=== PATIENT | female | born 1940 | race Caucasian/White ===

== ENCOUNTER 2017-08-30 08:00 | Outpatient (CLI) | payer MEDICARE, OTHER ==
[2017-08-30 19:27] LABS: BASOPHILS % (AUTO) 0.2 %; EOSINOPHILS # (AUTO) 0.1 10^3/uL (0.0-0.7); EOSINOPHILS % (AUTO) 2.2 %; HCT - HEMATOCRIT 43.8 % (37.0-47.0); HGB - HEMOGLOBIN 14.3 g/dL (12.0-16.0); MEAN CORPUSCULAR HEMOGLOBIN 29.2 pg (27.0-31.0); MEAN CORPUSCULAR HGB CONC 32.6 g/dL (32.0-36.0); MEAN CORPUSCULAR VOLUME 89.7 fL (81.0-99.0); MEAN PLATELET VOLUME 8.8 fL (7.9-10.8); MONOCYTES # (AUTO) 0.4 10^3/uL (0.0-1.0); MONOCYTES % (AUTO) 6.7 %; NEUTROPHILS # (AUTO) 3.5 10^3/uL (1.5-6.6); NEUTROPHILS % (AUTO) 57.9 %; NUCLEATED RED BLOOD CELLS AUTO 0.1 /100WBC; RED BLOOD COUNT 4.89 10^6/uL (4.20-5.40); RED CELL DISTRIBUTION WIDTH 14.2 % (12.0-15.0)
[2017-08-30 19:45] LABS: HEMOGLOBIN A1C 0.54 g/dL
[2017-08-30 19:55] LABS: THYROID STIMULATING HORMONE 3.04 uIU/mL (0.34-5.60)
[2017-08-30 20:31] LABS: ALBUMIN/GLOBULIN RATIO 1.5 (1.0-2.2); BILIRUBIN,TOTAL 0.5 mg/dL (0.2-1.0); BUN - BLOOD UREA NITROGEN 14 mg/dL (6-20); CALCIUM 10.1 mg/dL (8.5-10.3); CARBON DIOXIDE - CO2 26 mmol/L (21-32); CHLORIDE 102 mmol/L (101-111); CREATININE 0.9 mg/dL (0.4-1.0); GFR - MDRD 61 (>89); GLUCOSE 82 mg/dL (70-100); POTASSIUM 3.9 mmol/L (3.5-5.0); SODIUM 138 mmol/L (135-145); TOTAL PROTEIN 7.2 g/dL (6.7-8.2)
[2017-09-01 15:35] LABS: ALPHA 1 GLOBULIN 0.3 g/dL (0.2-0.3); ALPHA 2 GLOBULIN 0.6 g/dL (0.5-0.9); BETA 1 GLOBULIN 0.4 g/dL (0.4-0.6); BETA 2 GLOBULIN 0.3 g/dL (0.2-0.5); GAMMA GLOBULIN 0.8 g/dL (0.8-1.7)
[2017-09-01 22:53] LABS: TEST RESULT REPORT
== END 2017-08-30 08:01 | disposition home or self-care (01) ==
LOC: LAB.WCP 08:00
PROVIDERS: ATTEND Family Medicine
DX: G62.9 Polyneuropathy, unspecified (principal); R73.01 Impaired fasting glucose; E78.5 Hyperlipidemia, unspecified
CPT/HCPCS: 36415; 80053; 81599; 82607; 83036; 84155; 84165; 84443; 85025; 86140

== ENCOUNTER 2019-01-19 09:18 | Outpatient (CLI) | payer MEDICARE, OTHER ==
[2019-01-19 09:30] LABS: BASOPHILS % (AUTO) 0.7 %; EOSINOPHILS # (AUTO) 0.2 10^3/uL (0.0-0.7); EOSINOPHILS % (AUTO) 3.1 %; HGB - HEMOGLOBIN 14.4 g/dL (12.0-16.0); LYMPHOCYTES # (AUTO) 1.8 10^3/uL (1.5-3.5); LYMPHOCYTES % (AUTO) 29.3 %; MEAN CORPUSCULAR HEMOGLOBIN 29.5 pg (27.0-31.0); MEAN CORPUSCULAR HGB CONC 33.3 g/dL (32.0-36.0); MEAN CORPUSCULAR VOLUME 88.7 fL (81.0-99.0); MEAN PLATELET VOLUME 7.5 fL (7.9-10.8); MONOCYTES # (AUTO) 0.4 10^3/uL (0.0-1.0); MONOCYTES % (AUTO) 6.9 %; NEUTROPHILS # (AUTO) 3.8 10^3/uL (1.5-6.6); PLT - PLATELET COUNT 208 10^3/uL (130-450); RED BLOOD COUNT 4.89 10^6/uL (4.20-5.40); RED CELL DISTRIBUTION WIDTH 14.3 % (12.0-15.0); WHITE BLOOD COUNT 6.3 x10^3/uL (4.8-10.8)
[2019-01-19 09:47] LABS: ALBUMIN/GLOBULIN RATIO 1.5 (1.0-2.2); ALKALINE PHOSPHATASE 42 IU/L (42-121); ALT ALANINE AMINOTRANSFERASE 18 IU/L (10-60); AST ASPARTATE AMINOTRANSFERASE 21 IU/L (10-42); BILIRUBIN,TOTAL 0.7 mg/dL (0.2-1.0); BUN - BLOOD UREA NITROGEN 12 mg/dL (6-20); CALCIUM 9.1 mg/dL (8.5-10.3); CARBON DIOXIDE - CO2 24 mmol/L (21-32); CHLORIDE 103 mmol/L (101-111); CHOL/HDL RATIO 4.4 (<4.4); CHOLESTEROL 236 mg/dL; CREATININE 0.9 mg/dL (0.4-1.0); GFR - MDRD 61 (>89); GLUCOSE 102 mg/dL (70-100); HDL CHOLESTEROL 54 mg/dL; LDL CHOLESTEROL,CALCULATED 159 mg/dL; LDL/HDL RATIO 2.9 (<4.4); SODIUM 137 mmol/L (135-145); TOTAL PROTEIN 6.7 g/dL (6.7-8.2); VLDL CHOLESTEROL 23 mg/dL
== END 2019-01-19 09:19 | disposition home or self-care (01) ==
LOC: LAB 09:18
PROVIDERS: ATTEND Family Medicine
DX: E78.5 Hyperlipidemia, unspecified (principal); Z85.3 Personal history of malignant neoplasm of breast
CPT/HCPCS: 36415; 80053; 80061; 83721; 85025

== ENCOUNTER 2019-03-06 08:46 | Outpatient (CLI) | payer MEDICARE, OTHER ==
--- NOTE | 2019-03-07 09:15 | Mammography Report ---
Reason: SCREENING MAMMO Procedure Date: 03/06/2019 Accession Number: [id number] / [id number] Procedure: EDILSON - Screening Mammo w/Luca CPT Code: FULL RESULT: EXAM: Screening Mammo w/Luca DATE: 03/06/2019 9:11 AM CLINICAL HISTORY: Screening encounter. Personal history of breast cancer. Status post lumpectomy of the left breast in 1989. TECHNIQUE: (B) - Bilateral CC and MLO views were obtained. COMPARISON: 01/13/2015 through 07/19/2010. PARENCHYMAL PATTERN: (A) - The breast(s) demonstrate(s) scattered fibroglandular densities. FINDINGS: The bilateral CC views are technically inadequate. There are no suspicious masses, calcifications, or areas of distortion detected on the submitted images. IMPRESSION: Incomplete examination. BI-RADS category 0. RECOMMENDATION: (REPEAT) - technical repeat of left and right cc views. BI-RADS CATEGORY: (0) - Incomplete Examination - need additional evaluation. STANDARD QUALIFYING STATEMENTS: 1. This examination was not reviewed with the aid of Computer-Aided Detection (CAD). 2. A negative or benign imaging report should not preclude biopsy if clinically suspicious findings are present. 3. Dense breasts may obscure an underlying neoplasm. 4. This examination was reviewed with the aid of 3D breast imaging (tomosynthesis).
== END 2019-03-06 08:47 | disposition home or self-care (01) ==
LOC: DI 08:46
DX: Z12.31 Encounter for screening mammogram for malignant neoplasm of breast (principal); Z08 Encounter for follow-up examination after completed treatment for malignant neoplasm; Z85.3 Personal history of malignant neoplasm of breast
CPT/HCPCS: 77063; 77067

== ENCOUNTER 2020-03-24 10:47 | Outpatient (CLI) | payer MEDICARE, OTHER | END 2020-03-24 10:48 | disposition home or self-care (01) | LOC: LAB 10:47 | PROVIDERS: ATTEND Ophthalmology | DX: H25.811 Combined forms of age-related cataract, right eye (principal); Z11.59 Encounter for screening for other viral diseases | CPT/HCPCS: 81599 ==

== ENCOUNTER 2020-03-26 06:42 | Day surgery (SDC) | payer MEDICARE, OTHER ==
[~2020-03-26 06:42] MED LIST: CYCLOPENTOLATE 1% OPHTH DROPS 2 ML ONE; KETOROLAC 0.45% OPHTH DROPS ONE; PHENYLEPHRINE 2.5% OPHTH 2 ML DROPS ONE; PROPARACAINE 0.5% OPHTH DROPS 15 ML ONE
[2020-03-26] MEDS ORDERED: LACTATED RINGERS 500 ML IV ONE (06:47)
[2020-03-26] MEDS ORDERED: BRIMONIDINE 0.2% OPHTH DROPS 5 ML ONE (06:49)
[2020-03-26] MEDS ORDERED: timoloL maleate 0.5% OPHTH DROPS (10ML) ONE (06:49)
[2020-03-26] MEDS ORDERED: TRIAMCIN/MOXIFLOX OPHTHALMIC 0.6 ML VIAL IO ONE (06:49)
[2020-03-26] MEDS ORDERED: VANCOMYCIN OPHTHALMI 8MG/0.8ML 8 MG/0.8 ML SYRINGE IO ONE ×2 (06:49→07:55)
[2020-03-26] MEDS ORDERED: BSS/LIDOCAINE/EPINEPHRINE 1 ML SYRINGE ONE (06:49)
[2020-03-26] MEDS ORDERED: EPINEPHrine 1 MG/ML AMP ONE (06:57)
[2020-03-26] MEDS ORDERED: EPINEPHrine 1 MG/ML AMP IR ONE (07:54)
[2020-03-26] MEDS ORDERED: BSS/LIDOCAINE/EPINEPHRINE 1 ML SYRINGE IO ONE (07:54)
[2020-03-26] MEDS ORDERED: BRIMONIDINE 0.2% OPHTH DROPS 5 ML OPTH ONE (07:54)
[2020-03-26] MEDS ORDERED: PROPARACAINE 0.5% OPHTH DROPS 15 ML EACHEYE ONE (07:54)
[2020-03-26] MEDS ORDERED: CHONDR SULF/HYALURONATE SYRINGE IO ONE (07:54)
--- NOTE | 2020-03-26 08:00 | ANESTHESIA ---
Pre-Anesthesia VS, & Labs - Diagnosis Right Cataract - Procedure Right eye ECCE with PHACO and IOL Vital Signs: Temp Pulse Resp BP Pulse Ox 36.2 C L 73 16 165/88 H 97 03/26/20 06:48 03/26/20 06:48 03/26/20 06:48 03/26/20 06:48 03/26/20 06:48 Height 5 ft 2 in Weight (kg) 71.2 kg - NPO >8 hours - Is Patient ?: No - Lab Results Lab results reviewed: Yes Home Medications and Allergies Aspirin [Aspir 81] 81 mg PO ONCEDAILY 10/16/13 Allergies/Adverse Reactions: Allergies Allergy/AdvReac Type Severity Reaction Status Date / Time No Known Drug Allergies Allergy Verified 10/15/13 13:09 Anes History & Medical History - Anesthetic History Anesthesia Complications: reports: No previous complications Family history of Anesthesia Complications: Denies Family history of Malignant Hyperthermia: Denies - Medical History Cardiovascular: reports: High cholesterol, Other Pulmonary: reports: None Gastrointestinal: reports: GERD, Hiatal hernia, Colon polyps, Hemorrhoids Urinary: reports: Frequency Musculoskeletal: reports: Other Endocrine/Autoimmune: reports: None Skin: reports: None - Surgical History General: Colonoscopy, EGD Gynecologic: Dilation and currettage, Other Exam General: Alert, Oriented x3, Cooperative Dental: WNL Mouth Openin Fingerbreadth (FB) Neck Mobility: Normal Mallampati classification: II Thyromental Distance: 4-6 cm Respiratory: Lungs clear Cardiovascular: Regular rate Plan Anesthesia Type: MAC Consent for Procedure(s) Verified and Reviewed: Yes Code Status: Attempt Resuscitation ASA classification: 3-Severe systemic disease Is this case an emergency?: No
[2020-03-26] MEDS ORDERED: MIDAZOLAM 2 MG/2 ML VIAL IVP ONE (08:09)
[2020-03-26 08:42] VITALS: BP 154/78
--- NOTE | 2020-03-26 09:45 | OPERATIVE REPORT ---
DATE OF SERVICE: 03/26/2020 Physician: Marco Antonio Vasquez MD PREOPERATIVE DIAGNOSIS: Visually significant cataract, right eye. This was her first cataract surge ry. POSTOPERATIVE DIAGNOSIS: Visually significant cataract, right eye. This was her first cataract surg [place]. PROCEDURE: Phacoemulsification with posterior chamber intraocular lens implant, right eye. SURGEON: Marco Antonio Vasquez MD ANESTHESIA: Monitored anesthesia care. COMPLICATIONS: None. OPERATIVE INDICATIONS: This is a 79-year-old woman with progressive vision loss in the right eye due to 2+ nuclear sclerotic, 2-3+ cortical, 2+ posterior subcapsular and vacuolar cataract. [facility] visual acuity was 20/30, with glare to 20/630 in the right eye. She was consented at length conc erning risks and benefits of cataract surgery, after which she expressed a desire to proceed with kofi dewey. OPERATIVE PROCEDURE: Patient was taken to OR #3 and placed under monitored anesthesia care. A surgi lia timeout was conducted confirming correct patient, correct procedure, and correct surgical site. She was given topical anesthesia, and prepped and draped in the usual sterile fashion. The eye was e ntered at the 12 and 9 o'clock positions. Intracameral Shugarcaine was injected into the anterior ch liat, followed by Viscoat. A continuous-tear curvilinear capsulorrhexis was performed. The nucleus was hydrodissected and phacoemulsified. The cortex was evacuated using automated infusion and aspir ation. Provisc was injected in the capsular bag, and a 23.5 diopter intraocular lens inserted in the bag. Infusion and aspiration was used to evacuate the viscoelastic materials. The eye was inflated to physiologic pressure using balanced salt solution and found to be watertight. Approximately 0.25 mL of a mixture of triamcinolone and moxifloxacin was injected trans sclerally into the vitreous in the inferotemporal quadrant. An additional 0.55 mL of a mixture of triamcinolone, moxifloxacin and v ancomycin was injected subconjunctivally in the superior quadrant for infection and inflammation prop hylaxis. Wound integrity was checked with Weck-Lisa sponges. Patient was taken from the Operating Ro om in good condition and given postoperative instructions. TD: 03/26/2020 08:42
== END 2020-03-26 06:43 | disposition home or self-care (01) ==
LOC: SDS 06:42
PROVIDERS: ATTEND Ophthalmology
DX: H25.811 Combined forms of age-related cataract, right eye (principal); Z87.891 Personal history of nicotine dependence
CPT/HCPCS: 66984; A9270; J3490; V2632

== ENCOUNTER 2020-04-30 06:40 | Day surgery (SDC) | payer MEDICARE, OTHER ==
[2020-04-30] MEDS ORDERED: KETOROLAC 0.45% OPHTH DROPS ONE (06:44)
[2020-04-30] MEDS ORDERED: PHENYLEPHRINE 2.5% OPHTH 2 ML DROPS ONE (06:45)
[2020-04-30] MEDS ORDERED: CYCLOPENTOLATE 1% OPHTH DROPS 2 ML ONE (06:45)
[2020-04-30] MEDS ORDERED: PROPARACAINE 0.5% OPHTH DROPS 15 ML ONE (06:45)
[2020-04-30] MEDS ORDERED: LACTATED RINGERS 500 ML IV ONE (06:48)
--- NOTE | 2020-04-30 07:38 | ANESTHESIA ---
Pre-Anesthesia VS, & Labs - Diagnosis left senile combined cataract - Procedure cateract extraction with intraocular lens implant left eye Vital Signs: Temp Pulse Resp BP Pulse Ox 36.1 C L 86 12 169/97 H 97 04/30/20 06:49 04/30/20 06:49 04/30/20 06:49 04/30/20 06:49 04/30/20 06:49 Height 5 ft 3 in Weight (kg) 70.6 kg - NPO >8 hours - Is Patient ?: No Home Medications and Allergies Aspirin [Aspir 81] 81 mg PO ONCEDAILY 10/16/13 Allergies/Adverse Reactions: Allergies Allergy/AdvReac Type Severity Reaction Status Date / Time No Known Drug Allergies Allergy Verified 10/15/13 13:09 Anes History & Medical History - Anesthetic History Anesthesia Complications: reports: No previous complications - Medical History Cardiovascular: reports: High cholesterol, Other Pulmonary: reports: None Gastrointestinal: reports: GERD, Hiatal hernia, Colon polyps, Hemorrhoids Urinary: reports: Frequency Musculoskeletal: reports: Other Endocrine/Autoimmune: reports: None Skin: reports: None - Surgical History General: Colonoscopy, EGD Gynecologic: Dilation and currettage, Other Exam General: Alert Dental: WNL Mouth Opening: Greater than 4 Fingerbreadths Neck Mobility: Normal Mallampati classification: II Thyromental Distance: greater than 6 cm Respiratory: Lungs clear Cardiovascular: Regular rate, Normal S1, Normal S2 Plan Anesthesia Type: MAC Consent for Procedure(s) Verified and Reviewed: Yes Code Status: Attempt Resuscitation ASA classification: 2-Mild systemic disease Is this case an emergency?: No
[2020-04-30] MEDS ORDERED: TRIAMCIN/MOXIFLOX OPHTHALMIC 0.6 ML VIAL IO ONE ×2 (07:48→08:04)
[2020-04-30] MEDS ORDERED: BRIMONIDINE 0.2% OPHTH DROPS 5 ML ONE (07:48)
[2020-04-30] MEDS ORDERED: EPINEPHrine 1 MG/ML AMP ONE (07:48)
[2020-04-30] MEDS ORDERED: TIMOLOL 0.5% OPHTH DROPS ONE (07:48)
[2020-04-30] MEDS ORDERED: BSS/LIDOCAINE/EPINEPHRINE 1 ML SYRINGE ONE (07:49)
[2020-04-30] MEDS ORDERED: VANCOMYCIN OPHTHALMI 8MG/0.8ML 8 MG/0.8 ML SYRINGE IO ONE ×2 (07:49→08:05)
[2020-04-30] MEDS ORDERED: MIDAZOLAM 2 MG/2 ML VIAL IVP ONE (08:00)
[2020-04-30] MEDS ORDERED: BRIMONIDINE 0.2% OPHTH DROPS 5 ML OPTH ONE (08:02)
[2020-04-30] MEDS ORDERED: TIMOLOL 0.5% OPHTH DROPS OPTH ONE (08:02)
[2020-04-30] MEDS ORDERED: EPINEPHrine 1 MG/ML AMP IR ONE (08:02)
[2020-04-30] MEDS ORDERED: CHONDR SULF/HYALURONATE SYRINGE IO ONE (08:02)
[2020-04-30] MEDS ORDERED: PROPARACAINE 0.5% OPHTH DROPS 15 ML EACHEYE ONE (08:04)
[2020-04-30] MEDS ORDERED: BSS/LIDOCAINE/EPINEPHRINE 1 ML SYRINGE IO ONE (08:04)
[2020-04-30] MEDS ORDERED: KETOROLAC 15 MG/ML VIAL ONE (08:28)
[2020-04-30 08:40] VITALS: BP 135/75
--- NOTE | 2020-04-30 09:12 | OPERATIVE REPORT ---
DATE OF SERVICE: 04/30/2020 Physician: Marco Antonio Vasquez MD PREOPERATIVE DIAGNOSIS: Visually significant cataract, left eye. Cataract surgery was performed on her right eye on 03/26/2020. POSTOPERATIVE DIAGNOSIS: Visually significant cataract, left eye. Cataract surgery was performed on her right eye on 03/26/2020. PROCEDURE: Phacoemulsification with posterior chamber intraocular lens implant, left eye. SURGEON: Marco Antonio Vasquez MD ANESTHESIA: Monitored anesthesia care. COMPLICATIONS: None. OPERATIVE INDICATIONS: This is a 79-year-old woman with progressive vision loss in the left eye due to 2+ nuclear sclerotic, 2-3+ cortical, 2+ posterior subcapsular and vacuolar cataract. Best correct ed visual acuity was 20/20, with glare to 20/800 in the left eye. Indications for surgery were diffi culty driving in low light or at night, difficulty driving at night because of headlights from other vehicles, and difficulty with glare or bright lights in any situation. She was consented at length c oncerning risks and benefits of cataract surgery, after which she expressed a desire to proceed with surgery. OPERATIVE PROCEDURE: Patient was taken to OR #3 and placed under monitored anesthesia care. Surgica l timeout was conducted confirming correct patient, correct procedure, and correct surgical site. Sh e was given topical anesthesia, and prepped and draped in the usual sterile fashion. The eye was ent ered at the 6 and 3 o'clock positions. Intracameral Shugarcaine was injected into the anterior chamb er, followed by Viscoat. A continuous-tear curvilinear capsulorrhexis was performed. The nucleus wa s hydrodissected and phacoemulsified. Cortex was evacuated using automated infusion and aspiration. Provisc was injected in the capsular bag, and a 23.0 diopter intraocular lens was inserted into the bag. Infusion and aspiration was used to evacuate the viscoelastic materials. The eye was inflated to physiologic pressure using balanced salt solution and found to be watertight. Approximately 0.25 mL of a mixture of triamcinolone and moxifloxacin was injected trans sclerally into the vitreous in t he inferotemporal quadrant. An additional 0.55 mL of a mixture of triamcinolone, moxifloxacin and va ncomycin was injected subconjunctivally in the superior quadrant for infection and inflammation proph ylaxis. Wound integrity was checked with Weck-Lisa sponges. Patient was taken from the Operating [facility] in good condition and given postoperative instructions. TD: 04/30/2020 09:06
--- NOTE | 2020-04-30 09:13 | ANESTHESIA POST OP EVALUATION ---
Anesthesia Post Eval - Post Anesthesia Eval Vitals: Last Vital Signs Temp 36.1 C L 04/30/20 08:38 Pulse 70 04/30/20 08:38 Resp 16 04/30/20 08:38 BP 135/75 H 04/30/20 08:38 Pulse Ox 96 04/30/20 08:38 CV Function Including HR & BP: positive: Stable Pain Control: positive: Satisfactory Nausea & Vomiting: positive: Negative Mental Status: positive: Patient Participates Respiratory Status: Airway Patent Hydration Status: Satisfactory Anesthesia Complications: positive: None
== END 2020-04-30 06:41 | disposition home or self-care (01) ==
LOC: SDS 06:40
PROVIDERS: ATTEND Ophthalmology
DX: H25.812 Combined forms of age-related cataract, left eye (principal); Z98.41 Cataract extraction status, right eye; Z87.891 Personal history of nicotine dependence
CPT/HCPCS: 66984; A9270; J3490; J7120; V2632

== ENCOUNTER 2020-05-14 08:34 | Outpatient (CLI) | payer MEDICARE, OTHER ==
[2020-05-14 08:50] LABS: BASOPHILS % (AUTO) 0.3 %; EOSINOPHILS # (AUTO) 0.2 10^3/uL (0.0-0.7); EOSINOPHILS % (AUTO) 2.9 %; HGB - HEMOGLOBIN 14.9 g/dL (12.0-16.0); LYMPHOCYTES # (AUTO) 2.4 10^3/uL (1.5-3.5); LYMPHOCYTES % (AUTO) 34.4 %; MEAN CORPUSCULAR HEMOGLOBIN 29.5 pg (27.0-31.0); MEAN CORPUSCULAR HGB CONC 32.6 g/dL (32.0-36.0); MEAN CORPUSCULAR VOLUME 90.5 fL (81.0-99.0); MEAN PLATELET VOLUME 9.3 fL (7.9-10.8); MONOCYTES # (AUTO) 0.5 10^3/uL (0.0-1.0); MONOCYTES % (AUTO) 6.8 %; NEUTROPHILS # (AUTO) 3.9 10^3/uL (1.5-6.6); NEUTROPHILS % (AUTO) 55.2 %; PLT - PLATELET COUNT 220 10^3/uL (130-450); RED BLOOD COUNT 5.05 10^6/uL (4.20-5.40); RED CELL DISTRIBUTION WIDTH 13.2 % (12.0-15.0)
[2020-05-14 09:07] LABS: ALBUMIN 4.3 g/dL (3.2-5.5); ALBUMIN/GLOBULIN RATIO 1.4 (1.0-2.2); ALKALINE PHOSPHATASE 48 IU/L (42-121); ALT ALANINE AMINOTRANSFERASE 16 IU/L (10-60); AST ASPARTATE AMINOTRANSFERASE 17 IU/L (10-42); BILIRUBIN,TOTAL 0.8 mg/dL (0.2-1.0); BUN - BLOOD UREA NITROGEN 14 mg/dL (6-20); CALCIUM 9.6 mg/dL (8.5-10.3); CARBON DIOXIDE - CO2 27 mmol/L (21-32); CHLORIDE 103 mmol/L (101-111); CHOL/HDL RATIO 4.8 (<4.4); CHOLESTEROL 281 mg/dL; CREATININE 0.9 mg/dL (0.4-1.0); GLUCOSE 103 mg/dL (70-100); HDL CHOLESTEROL 58 mg/dL; LDL CHOLESTEROL,CALCULATED 193 mg/dL; LDL/HDL RATIO 3.3 (<4.4); SODIUM 138 mmol/L (135-145); TOTAL PROTEIN 7.4 g/dL (6.7-8.2); VLDL CHOLESTEROL 30 mg/dL
[2020-05-14 14:17] LABS: HEMOGLOBIN A1c% 5.6 % (4.27-6.07)
== END 2020-05-14 08:35 | disposition home or self-care (01) ==
LOC: LAB 08:34
PROVIDERS: ATTEND Family Medicine
DX: R73.01 Impaired fasting glucose (principal); E78.5 Hyperlipidemia, unspecified; M85.80 Other specified disorders of bone density and structure, unspecified site
CPT/HCPCS: 36415; 80053; 80061; 83036; 83721; 85025

== ENCOUNTER 2020-05-18 15:08 | Outpatient (CLI) | payer MEDICARE, OTHER ==
--- NOTE | 2020-05-18 17:13 | DEXA Report ---
PROCEDURE: Dexa Spine and/or Hip INDICATIONS: DISORDER OF BONE, UNSPECIFIED TECHNIQUE: Dual energy x-ray absorptiometry (DXA) was performed on a [employer]ik[employer] System. Regions measur ed are the AP Spine, femoral neck, and if needed forearm. COMPARISON: None. FINDINGS: Lumbar Spine: Bone Mineral Density 1.013 g/cm/cm,T score -1.3, minimal osteopenia Left Hip: Bone Mineral Density -0.69 g/cm/cm,T score -0.3, normal Left Femoral Neck: Bone Mineral Density 0.894 g/cm/cm, T score -1.0, normal (T score greater or equal to -1.0: NORMAL) (T score from -1.1 to -2.4: OSTEOPENIA) (T score less than or equal to -2.5 to: OSTEOPOROSIS) Impression: Minimal osteopenia within the lumbar spine. Patients with diagnosis of osteoporosis or osteopenia should have regular bone mineral density assess ment. For those eligible for Medicare, routine testing is allowed once every 2 years. Testing frequ ency can be increased for patients who have rapidly progressing disease or for those who are receivin g medical therapy to restore bone mass. Reviewed by: Carey Lou MD on 05/18/2020 5:12 PM PDT Approved by: Carey Lou MD on 05/18/2020 5:12 PM PDT Station ID: [id number]
== END 2020-05-18 15:09 | disposition home or self-care (01) ==
LOC: DI 15:08
PROVIDERS: ATTEND Family Medicine
DX: M85.88 Other specified disorders of bone density and structure, other site (principal)
CPT/HCPCS: 77080

== ENCOUNTER 2021-03-04 10:19 | Outpatient (CLI) | payer MEDICARE ==
--- NOTE | 2021-03-05 10:35 | Mammography Report ---
BILATERAL DIGITAL DIAGNOSTIC MAMMOGRAM 3D/2D: 03/04/2021 CLINICAL: Diffuse right breast pain. Comparison is made to exams dated: 04/08/2019 mammogram, 03/06/2019 mammogram, 01/01/2014 mammogram, an d 01/13/2015 mammogram - [facility]. There are scattered fibroglandular elements in both breasts. No significant masses, calcifications, or other findings are seen in either breast. No mass or calcif ications in the right breast. Prior left breast lumpectomy. IMPRESSION: NEGATIVE There is no mammographic evidence of malignancy. A 1 year screening mammogram is recommended. Exam findings were conveyed to the patient. Patient is advised to monitor right breast pain/itchiness for significant change. Clinical follow-up as needed. This exam was interpreted at Station ID: [id number]. NOTE: For mammograms, a report in lay terms will be sent to the patient. Approximately 15% of breast malignancies will not be visualized mammographically. In the management of a palpable breast mass, a negative mammogram must not discourage biopsy of a clinically suspicious lesion. Electronically Signed By: Mateo Ivy M.D. slc/:03/04/2021 12:17:04 ACR BI-RADS Category 1: Negative 3341F PARENCHYMAL PATTERN: (A) - The breast(s) demonstrate(s) scattered fibroglandular densities. BI-RADS CATEGORY: (1) - 1 RECOMMENDATION: (ANNUAL) - Recommend routine annual screening mammography. [id number] 1 year screening LATERALITY: (B)
== END 2021-03-04 10:20 | disposition home or self-care (01) ==
LOC: DI 10:19
PROVIDERS: ATTEND Family Medicine
DX: N64.59 Other signs and symptoms in breast (principal)

== ENCOUNTER 2021-07-21 08:54 | Outpatient (CLI) | payer MEDICARE ==
[2021-07-21 09:35] LABS: BASOPHILS % (AUTO) 0.3 %; EOSINOPHILS # (AUTO) 0.1 10^3/uL (0.0-0.7); EOSINOPHILS % (AUTO) 2.3 %; HGB - HEMOGLOBIN 14.8 g/dL (12.0-16.0); LYMPHOCYTES # (AUTO) 2.1 10^3/uL (1.5-3.5); LYMPHOCYTES % (AUTO) 35.4 %; MEAN CORPUSCULAR HEMOGLOBIN 29.6 pg (27.0-31.0); MEAN CORPUSCULAR HGB CONC 32.9 g/dL (32.0-36.0); MEAN PLATELET VOLUME 9.5 fL (7.9-10.8); MONOCYTES # (AUTO) 0.5 10^3/uL (0.0-1.0); MONOCYTES % (AUTO) 7.9 %; NEUTROPHILS # (AUTO) 3.2 10^3/uL (1.5-6.6); NEUTROPHILS % (AUTO) 53.9 %; PLT - PLATELET COUNT 212 10^3/uL (130-450); RED CELL DISTRIBUTION WIDTH 13.4 % (12.0-15.0)
[2021-07-21 09:50] LABS: ALBUMIN 4.2 g/dL (3.2-5.5); ALBUMIN/GLOBULIN RATIO 1.6 (1.0-2.2); ALKALINE PHOSPHATASE 44 IU/L (42-121); ALT ALANINE AMINOTRANSFERASE 17 IU/L (10-60); AST ASPARTATE AMINOTRANSFERASE 14 IU/L (10-42); BUN - BLOOD UREA NITROGEN 13 mg/dL (6-20); CALCIUM 9.3 mg/dL (8.5-10.3); CARBON DIOXIDE - CO2 27 mmol/L (21-32); CHLORIDE 104 mmol/L (101-111); CHOL/HDL RATIO 4.7 (<4.4); CHOLESTEROL 261 mg/dL; CREATININE 0.8 mg/dL (0.4-1.0); GFR - MDRD 69 (>89); GLUCOSE 101 mg/dL (70-100); HDL CHOLESTEROL 56 mg/dL; LDL CHOLESTEROL,CALCULATED 180 mg/dL; LDL/HDL RATIO 3.2 (<4.4); POTASSIUM 4.1 mmol/L (3.5-5.0); SODIUM 139 mmol/L (135-145); TOTAL PROTEIN 6.9 g/dL (6.7-8.2); TRIGLYCERIDES 124 mg/dL; VLDL CHOLESTEROL 25 mg/dL
[2021-07-21 11:45] LABS: ESTIMATED AVERAGE GLUCOSE 117 mg/dL (70-100); HEMOGLOBIN A1c% 5.7 % (4.27-6.07)
== END 2021-07-21 08:55 | disposition home or self-care (01) ==
LOC: LAB 08:54
PROVIDERS: ATTEND Family Medicine
DX: E78.5 Hyperlipidemia, unspecified (principal); R73.01 Impaired fasting glucose; M89.9 Disorder of bone, unspecified
CPT/HCPCS: 36415; 80053; 80061; 83036; 83721; 85025

== ENCOUNTER 2022-03-29 15:00 | Outpatient (CLI) | payer MEDICARE | END 2022-03-29 15:01 | disposition home or self-care (01) | LOC: DI 15:00 | PROVIDERS: ATTEND Nurse Practitioner Family | DX: R01.1 Cardiac murmur, unspecified (principal); I51.7 Cardiomegaly | CPT/HCPCS: 93306 ==

== ENCOUNTER 2022-10-17 09:57 | Outpatient (CLI) | payer MEDICARE ==
--- NOTE | 2022-10-17 16:47 | Ultrasound Report ---
PROCEDURE: Abdomen Limited INDICATIONS: HEMATOCHEZIA TECHNIQUE: Real-time focused scanning was performed of the abdomen, with image documentation. COMPARISON: None FINDINGS: Liver demonstrates heterogeneous increased echotexture. Cluster of septated cyst within th e left hepatic lobe spanning 13 mm is present. Hepatopedal flow within the portal vein is present. Ga llbladder is within normal limits. No biliary ductal dilatation. Pancreas is not well seen but is wit hin normal limits as visualized. Right kidney is grossly unremarkable without hydronephrosis. Proxima l and mid aorta are not well seen. Distal abdominal aorta is normal in caliber. IVC is patent. No vicki e fluid is seen. IMPRESSION: No acute process. Reviewed by: Calixto Escalona MD on 10/17/2022 4:46 PM PST Approved by: Calixto Escalona MD on 10/17/2022 4:46 PM PST Station ID: [id number]
== END 2022-10-17 09:58 | disposition home or self-care (01) ==
LOC: DI 09:57
PROVIDERS: ATTEND Nurse Practitioner Family
DX: K92.1 Melena (principal); R10.816 Epigastric abdominal tenderness

== ENCOUNTER 2022-10-23 21:31 | Outpatient (CLI) | payer MEDICARE ==
[2022-10-23 14:16] LABS: FECAL OCCULT BLOOD (FIT) NEGATIVE (NEGATIVE)
== END 2022-10-23 23:59 | disposition home or self-care (01) ==
LOC: LAB 21:31
PROVIDERS: ATTEND Nurse Practitioner Family
DX: K92.1 Melena (principal); R10.816 Epigastric abdominal tenderness
CPT/HCPCS: 82274

== ENCOUNTER 2023-03-22 10:00 | Outpatient (CLI) | payer MEDICARE ==
[2023-03-22 10:15] LABS: BASOPHILS % (AUTO) 0.4 %; EOSINOPHILS # (AUTO) 0.1 10^3/uL (0.0-0.7); EOSINOPHILS % (AUTO) 2.2 %; HCT - HEMATOCRIT 45.4 % (37.0-47.0); HGB - HEMOGLOBIN 14.6 g/dL (12.0-16.0); LYMPHOCYTES # (AUTO) 1.7 10^3/uL (1.5-3.5); LYMPHOCYTES % (AUTO) 29.6 %; MEAN CORPUSCULAR HEMOGLOBIN 28.6 pg (27.0-31.0); MEAN CORPUSCULAR HGB CONC 32.2 g/dL (32.0-36.0); MEAN PLATELET VOLUME 9.2 fL (7.9-10.8); MONOCYTES # (AUTO) 0.5 10^3/uL (0.0-1.0); MONOCYTES % (AUTO) 8.8 %; NEUTROPHILS # (AUTO) 3.3 10^3/uL (1.5-6.6); NEUTROPHILS % (AUTO) 58.8 %; PLT - PLATELET COUNT 246 10^3/uL (130-450); RED CELL DISTRIBUTION WIDTH 13.2 % (12.0-15.0); WHITE BLOOD COUNT 5.6 x10^3/uL (4.8-10.8)
[2023-03-22 10:33] LABS: ALBUMIN/GLOBULIN RATIO 1.3 (1.0-2.2); ALKALINE PHOSPHATASE 49 IU/L (42-121); ALT ALANINE AMINOTRANSFERASE 14 IU/L (10-60); AST ASPARTATE AMINOTRANSFERASE 17 IU/L (10-42); BILIRUBIN,TOTAL 0.6 mg/dL (0.2-1.0); BUN - BLOOD UREA NITROGEN 9 mg/dL (6-20); CALCIUM 9.1 mg/dL (8.5-10.3); CARBON DIOXIDE - CO2 30 mmol/L (21-32); CHLORIDE 104 mmol/L (101-111); CHOL/HDL RATIO 4.7 (<4.4); CHOLESTEROL 220 mg/dL; CREATININE 0.8 mg/dL (0.4-1.0); GFR - MDRD 69 (>89); GLUCOSE 95 mg/dL (70-100); HDL CHOLESTEROL 47 mg/dL; LDL CHOLESTEROL,CALCULATED 133 mg/dL; LDL/HDL RATIO 2.8 (<4.4); SODIUM 139 mmol/L (135-145); TOTAL PROTEIN 7.1 g/dL (6.7-8.2); TRIGLYCERIDES 199 mg/dL; VLDL CHOLESTEROL 40 mg/dL
[2023-03-22 12:13] LABS: THYROID STIMULATING HORMONE 4.74 uIU/mL (0.34-5.60)
== END 2023-03-22 10:01 | disposition home or self-care (01) ==
LOC: LAB 10:00
PROVIDERS: ATTEND Nurse Practitioner Family
DX: Z00.00 Encounter for general adult medical examination without abnormal findings (principal)
CPT/HCPCS: 36415; 80053; 80061; 83721; 84443; 85025

== ENCOUNTER 2023-11-14 08:00 | Outpatient (CLI) | payer MEDICARE ==
[2023-11-14 16:27] LABS: H. PYLORIS ANTIGEN STL NEGATIVE (Negative)
[2023-11-16 12:09] LABS: GIARDIA LAMBLIA AG EIA Negative (Negative)
== END 2023-11-14 23:59 | disposition home or self-care (01) ==
LOC: LAB.S 08:00
PROVIDERS: ATTEND Nurse Practitioner Family
DX: K52.9 Noninfective gastroenteritis and colitis, unspecified (principal); R19.4 Change in bowel habit; K92.1 Melena; R10.9 Unspecified abdominal pain
CPT/HCPCS: 87045; 87046; 87177; 87209; 87329; 87338; 87427

== ENCOUNTER 2024-01-23 08:50 | Day surgery (SDC) | payer MEDICARE ==
[2024-01-23] MEDS: LACTATED RINGERS 1,000 ML IV ONE (09:03)
[2024-01-23] MEDS ORDERED: PROPOFOL 500 MG/50 ML 500 MG/50 ML VIAL ONE (09:39)
[2024-01-23] MEDS ORDERED: LIDOCAINE-MPF 2% 5 ML VIAL ONE (10:25)
--- NOTE | 2024-01-23 10:38 | ANESTHESIA ---
Pre-Anesthesia VS, & Labs - Diagnosis screening - Procedure colonoscopy Vital Signs: Temp Pulse Resp BP Pulse Ox O2 Flow Rate 36.5 C 72 14 150/85 H 98 01/23/24 09:11 01/23/24 09:11 01/23/24 09:11 01/23/24 09:11 01/23/24 09:11 Height: 5 ft 2 in Weight (kg): 59.1 kg Body Mass Index: 23.8 BMI Classification: Normal - NPO >8 hours - Is Patient ?: No Home Medications and Allergies Home Medications: Ambulatory Orders No Known Home Medications 01/23/24 No Known Home Medications 01/23/24 Allergies/Adverse Reactions: Allergies Allergy/AdvReac Type Severity Reaction Status Date / Time No Known Drug Allergies Allergy Verified 10/15/13 13:09 Anes History & Medical History - Anesthetic History Anesthesia Complications: reports: No previous complications Family history of Anesthesia Complications: Denies Family history of Malignant Hyperthermia: Denies - Medical History Cardiovascular: reports: High cholesterol, Other Pulmonary: reports: None Gastrointestinal: reports: GERD, Hiatal hernia, Colon polyps, Hemorrhoids Urinary: reports: Frequency Musculoskeletal: reports: Other Endocrine/Autoimmune: reports: None Skin: reports: None Smoking Status: Current every day smoker - Surgical History General: reports: Colonoscopy, EGD Gynecologic: reports: Dilation and currettage, Other Exam General: Alert, Oriented x3, Cooperative Dental: WNL Mouth Openin Fingerbreadth Neck Mobility: Normal Mallampati classification: II Thyromental Distance: 4-6 cm Respiratory: Lungs clear Cardiovascular: Regular rate Plan Anesthesia Type: General, Total IV Consent for Procedure(s) Verified and Reviewed: Yes Code Status: Attempt Resuscitation ASA classification: 2-Mild systemic disease Is this case an emergency?: No
[2024-01-23] MEDS: LACTATED RINGERS 550 ML IV ONE (11:10)
[2024-01-23 11:37] VITALS: BP 133/77; O2SAT 98
[2024-01-23] MEDS: ACETAMINOPHEN 500 MG TABLET PO PRN (11:37)
[2024-01-23] MEDS ORDERED: LIDOCAINE OINTMENT 5% 35.44 GM TUBE TOP SCH (13:00)
--- NOTE | 2024-01-23 15:25 | ANESTHESIA POST OP EVALUATION ---
Anesthesia Post Eval - Post Anesthesia Eval Vitals: Last Vital Signs Temp 36.2 C L 01/23/24 11:22 Pulse 72 01/23/24 11:22 Resp 15 01/23/24 11:22 BP 133/77 H 01/23/24 11:22 Pulse Ox 98 01/23/24 11:22 O2 Flow Rate CV Function Including HR & BP: Stable Pain Control: Satisfactory Nausea & Vomiting: Negative Mental Status: Baseline Respiratory Status: Airway Patent Hydration Status: Satisfactory Anesthesia Complications: None
== END 2024-01-23 08:51 | disposition home or self-care (01) ==
LOC: SDS 08:50
PROVIDERS: ATTEND Surgery
PROC: 06LY8CC Occlusion of Hemorrhoidal Plexus with Extraluminal Device, Via Natural or Artificial Opening Endoscopic (ICD-10-PCS; 2024-01-23)
PROC: 0DBM8ZZ Excision of Descending Colon, Via Natural or Artificial Opening Endoscopic (ICD-10-PCS; principal; 2024-01-23 10:30)
DX: R19.4 Change in bowel habit (principal); K62.5 Hemorrhage of anus and rectum; D12.4 Benign neoplasm of descending colon; K64.1 Second degree hemorrhoids; K57.30 Diverticulosis of large intestine without perforation or abscess without bleeding; R63.4 Abnormal weight loss; Z68.23 Body mass index [BMI] 23.0-23.9, adult; F17.200 Nicotine dependence, unspecified, uncomplicated; Z85.3 Personal history of malignant neoplasm of breast
CPT/HCPCS: 45385; 46221; A9270; J7120

== ENCOUNTER 2024-04-04 15:52 | Outpatient (CLI) | payer MEDICARE ==
[2024-04-04 16:09] LABS: BASOPHILS % (AUTO) 0.2 %; EOSINOPHILS # (AUTO) 0.2 10^3/uL (0.0-0.7); EOSINOPHILS % (AUTO) 2.7 %; HGB - HEMOGLOBIN 14.5 g/dL (12.0-16.0); LYMPHOCYTES # (AUTO) 1.8 10^3/uL (1.5-3.5); LYMPHOCYTES % (AUTO) 27.3 %; MEAN CORPUSCULAR HEMOGLOBIN 30.2 pg (27.0-31.0); MEAN CORPUSCULAR VOLUME 91.7 fL (81.0-99.0); MEAN PLATELET VOLUME 9.1 fL (7.9-10.8); MONOCYTES # (AUTO) 0.3 10^3/uL (0.0-1.0); MONOCYTES % (AUTO) 5.3 %; NEUTROPHILS # (AUTO) 4.1 10^3/uL (1.5-6.6); NEUTROPHILS % (AUTO) 64.2 %; PLT - PLATELET COUNT 308 10^3/uL (130-450); RED CELL DISTRIBUTION WIDTH 13.1 % (12.0-15.0); WHITE BLOOD COUNT 6.4 x10^3/uL (4.8-10.8)
[2024-04-04 16:19] LABS: BILIRUBIN,URINE NEGATIVE (NEGATIVE); GLUCOSE, URINE (UA) NEGATIVE (NEGATIVE); KETONES,URINE (UA) NEGATIVE (NEGATIVE); LEUKOCYTE ESTERASE, URINE SMALL (NEGATIVE); NITRITE,URINE NEGATIVE (NEGATIVE); OCCULT BLOOD,URINE NEGATIVE (NEGATIVE); PROTEIN,URINE NEGATIVE (NEGATIVE); UROBILINOGEN,URINE 0.2 (NORMAL) E.U./dL (NORMAL)
[2024-04-04 16:20] LABS: CLARITY,URINE CLEAR (CLEAR)
[2024-04-04 16:25] LABS: ALBUMIN 4.2 g/dL (3.2-5.5); ALBUMIN/GLOBULIN RATIO 1.3 (1.0-2.2); ALKALINE PHOSPHATASE 49 IU/L (42-121); ALT ALANINE AMINOTRANSFERASE 8 IU/L (10-60); AST ASPARTATE AMINOTRANSFERASE 11 IU/L (10-42); BILIRUBIN,TOTAL 0.3 mg/dL (0.2-1.0); BUN - BLOOD UREA NITROGEN 7 mg/dL (6-20); CALCIUM 10.1 mg/dL (8.5-10.3); CARBON DIOXIDE - CO2 28 mmol/L (21-32); CHLORIDE 101 mmol/L (101-111); CHOL/HDL RATIO 4.3 (<4.4); CHOLESTEROL 215 mg/dL; CREATININE 0.8 mg/dL (0.6-1.3); CRP - C-REACTIVE PROTEIN 1.8 mg/dL (<0.5); GFR - MDRD 69 (>89); GLUCOSE 149 mg/dL (74-104); HDL CHOLESTEROL 50 mg/dL; LDL CHOLESTEROL,CALCULATED 134 mg/dL; LDL/HDL RATIO 2.7 (<4.4); SODIUM 137 mmol/L (135-145); TOTAL PROTEIN 7.4 g/dL (6.4-8.9); TRIGLYCERIDES 154 mg/dL; VLDL CHOLESTEROL 31 mg/dL
[2024-04-04 16:25] LABS: BACTERIA,URINE Moderate /HPF (None Seen); RBC,URINE None Seen /HPF (0-5); SQUAMOUS EPITHELIAL CELL,UR RARE Squamous (<= Few)
[2024-04-04 16:39] LABS: THYROID STIMULATING HORMONE 2.63 uIU/mL (0.34-5.60)
== END 2024-04-04 15:53 | disposition home or self-care (01) ==
LOC: LAB 15:52
PROVIDERS: ATTEND Nurse Practitioner
DX: R41.3 Other amnesia (principal); R51.9 Headache, unspecified; E78.5 Hyperlipidemia, unspecified; R35.0 Frequency of micturition
CPT/HCPCS: 36415; 80053; 80061; 81001; 82607; 83721; 84443; 85025; 85651; 86140; 87086